=== PATIENT | female | born 1950 | race African-American/Black ===

== ENCOUNTER 2017-09-02 08:33 | Emergency (ER) | payer MEDICARE ==
[~2017-09-02] VITALS: Ht 160 cm; Wt 86.2 kg
[2017-09-02] MEDS ORDERED: NORVASC10 MG ORAL (08:44)
[2017-09-02 08:53] VITALS: BP 185/107
[2017-09-02] MEDS ORDERED: AMOXICILLIN500 MG ORAL (08:54)
[2017-09-02] MEDS ORDERED: PROMETHAZINE-C118 M1 ORAL (08:54)
[2017-09-02 09:00] VITALS: BP 185/107
--- NOTE | 2017-09-02 10:47 | Emergency Room Report ---
History of Present Illness General Chief Complaint: Upper Respiratory Illness Source: Patient Present Illness HPI 67-year-old female presents ED complaining of cough 3 days. States cough is productive. Denies any fevers or chills. Denies chest pain or shortness of breath. Patient states that she just completed a 6 month course of medications for TB. Patient tested positive for TB but displayed no symptoms, had a negative chest x-ray. Patient explained that she was born outside of the [place] with BCG vaccination but PMD wanted to give her treatment regardless. No other aggravating relieving factors. Denies any other associated symptoms Allergies: Coded Allergies: No Known Allergies (Unverified , 09/02/17) Patient History Past Medical History: HTN Past Surgical History: none Pertinent Family History: none Social History: Denies: smoking, alcohol use, drug use Last Menstrual Period: menopause Now: No Immunizations: UTD Reviewed Nursing Documentation: PMH: Agreed, PSxH: Agreed Nursing Documentation-PMH Past Medical History: No History, Except For Hx Hypertension: Yes Review of Systems All Other Systems: negative except mentioned in HPI Physical Exam Vital Signs Date Time Temp Pulse Resp B/P (MAP) Pulse Ox O2 Delivery O2 Flow Rate FiO2 09/02/17 08:41 98.2 100 18 153/79 97 Room Air Sp02 EP Interpretation: reviewed, normal General Appearance: no apparent distress, alert, GCS 15, non-toxic Head: normocephalic, atraumatic Eyes: bilateral eye normal inspection, bilateral eye PERRL ENT: hearing grossly normal, normal pharynx, no angioedema, normal voice Neck: full range of motion, supple/symm/no masses Respiratory: chest non-tender, lungs clear, normal breath sounds, speaking full sentences Cardiovascular #1: regular rate, rhythm, no edema Cardiovascular #2: 2+ carotid (R), 2+ carotid (L), 2+ radial (R), 2+ radial (L) , 2+ dorsalis pedis (R), 2+ dorsalis pedis (L) Gastrointestinal: normal bowel sounds, non tender, soft, non-distended, no guarding, no rebound Rectal: deferred Genitourinary: normal inspection, no CVA tenderness Musculoskeletal: back normal, gait/station normal, normal range of motion, non- tender Neurologic: alert, oriented x3, responsive, motor strength/tone normal, sensory intact, speech normal Psychiatric: judgement/insight normal, memory normal, mood/affect normal, no suicidal/homicidal ideation Reflexes: 3+ bicep (R), 3+ bicep (L), 3+ tricep (R), 3+ tricep (L), 3+ knee (R) , 3+ knee (L) Skin: normal color, no rash, warm/dry, well hydrated Lymphatic: no adenopathy Medical Decision Making Diagnostic Impression: Primary Impression: Atypical pneumonia ER Course Hospital Course 67-year-old female presents to ED complaining of cough x 3 days Differential diagnoses include: URI, pharyngitis, otitis media, asthma Clinical course Patient placed on stretcher. After initial history, physical exam reveals a female in no acute distress. Bilateral TM unremarkable. No pharyngeal erythema. No tonsillar exudates. No lymphadenopathy. lungs clear. abdomen soft. Findings consistent with atypical pneumonia. We will prescribe antibiotics. Patient [place] BCG vaccination which will always make testing positive. Patient had negative chest x-ray and was asymptomatic. Despite that patient was placed on prophylactic medication. I do not believe patient requires further workup of this at this time Diagnosis - atypical pneumonia Stable and discharged home with Rx Amoxicillin, cough syrup. Instructed to followup with PMD. Return to ED if symptoms recur or worsen Last Vital Signs Date Time Temp Pulse Resp B/P (MAP) Pulse Ox O2 Delivery O2 Flow Rate FiO2 09/02/17 09:00 98.2 100 18 185/107 97 Room Air Status: improved Disposition: HOME, SELF-CARE Condition: Stable Scripts Codeine/Promethazine Hcl* (PROMETHAZINE-CODEINE SYRUP*) 118 Ml Syrup 5 ML ORAL Q6H Y for For Cough, #118 ML 0 Refills Prov: MANNY GODWIN M.D. 09/02/17 Amoxicillin* (AMOXIL*) 500 Mg Capsule 500 MG ORAL THREE TIMES A DAY, #21 CAP Prov: MANNY GODWIN M.D. 09/02/17 Referrals: DAMARI ARAUZ [facility],REFERRING (PCP) Departure Forms: Return to Work Return to Work Date: Sep 04, 2017 Work Restrictions: None Patient Instructions: Community-Acquired Pneumonia, Adult, [id number] MANNY GODWIN M.D. Sep 02, 2017 10:47
== END 2017-09-02 09:08 | disposition home or self-care (01) ==
LOC: EMR 08:52
DX: J18.9 Pneumonia, unspecified organism (principal); I10 Essential (primary) hypertension
CPT/HCPCS: 99283